=== PATIENT | male | born 1960 | race Caucasian/White ===

== ENCOUNTER 2025-04-24 07:20 | Day surgery (SDC) | payer OTHER ==
[2025-04-22 10:32] LABS: Absolute Lymphocytes (CBC) 2.5 K/uL (0.7-4.9); Hematocrit 52.8 % (39.6-49.0); Hemoglobin 17.0 g/dL (13.6-17.9); MCH 27.3 pg (27.0-35.0); MCHC 32.3 g/dL (32.0-36.0); MCV 84.5 fL (80-100); MPV 11.2 fL (7.6-11.3); Nucleated RBC Absolute Count 0.0 (0-0); Nucleated Red Blood Cells % 0.0 % (0-0); RBC Red Blood Cell Count 6.25 M/uL (4.33-5.43); White Blood Count 8.70 thou/uL (4.3-10.9)
[2025-04-22 10:40] LABS: Anion Gap 4.7 mEq/L (5.0-15.0); BUN Blood Urea Nitrogen 13.0 mg/dL (7-18); Glucose Level 113.0 mg/dL (74-106); Potassium 4.7 mEq/L (3.5-5.1)
[2025-04-22 12:04] LABS: Platelets, Giant PRESENT; White Blood Cell Scan OK (OK)
[2025-04-22 12:05] LABS: Blood Morphology Comment NOT SEEN (NOT SEEN)
[2025-04-24] MEDS: NA CHLORIDE 0.9% 1,000 ML ONE (08:00)
[2025-04-24] MEDS ORDERED: LIDOCAINE 1% MPF 5 ML VIAL ONE (08:40)
[2025-04-24] MEDS ORDERED: SUCCINYLCHOLINE 20 MG/ML (10 ML) IV ONE (08:51)
[2025-04-24] MEDS ORDERED: ONDANSETRON 4 MG/2 ML VIAL ONE (09:54)
[2025-04-24 11:24] VITALS: O2SAT 96
[2025-04-24 11:25] VITALS: BP 106/66; TEMP 98
== END 2025-04-24 10:20 | disposition home or self-care (01) ==
LOC: OR 07:20
PROVIDERS: ATTEND Surgery
PROC: 0DBN8ZX Excision of Sigmoid Colon, Via Natural or Artificial Opening Endoscopic, Diagnostic (ICD-10-PCS; principal; 2025-04-24 08:45)
DX: Z12.11 Encounter for screening for malignant neoplasm of colon (principal); Z86.0100 Personal history of colon polyps, unspecified; D12.5 Benign neoplasm of sigmoid colon; K57.30 Diverticulosis of large intestine without perforation or abscess without bleeding; K64.8 Other hemorrhoids
CPT/HCPCS: 85025; 80048; 36415; 82947; 88305; 45380; J2704 ×2; J2003; J2405; J7030; J0330